=== PATIENT | male | born 1965 | race Hispanic/Latino ===

== ENCOUNTER 2017-04-25 06:28 | Emergency (ER) | payer SELFPAY ==
--- NOTE | 2017-04-25 06:44 | ED PDOC ---
Arrival/HPI - General Time Seen by Provider: 04/25/17 06:31 - History of Present Illness Narrative History of Present Illness (Text): 04/25/17 06:42 patient presents complaining of left-sided chest pain which began this morningpain radiates to left arm and left jaw region in the field by medics with nitroglycerin no abdominal pain Past Medical History - Provider Review Nursing Documentation Reviewed: Yes Family/Social History - Physician Review Nursing Documentation Reviewed: Yes Family/Social History: No Known Family HX Allergies/Home Meds Allergies/Adverse Reactions: Allergies No Known Allergies Allergy (Verified 04/25/17 06:34) Home Medications: Home Meds Medication Instructions Recorded Confirmed Unobtainable 04/25/17 04/25/17 Review of Systems - Physician Review All systems were reviewed & negative as marked: Yes - Review of Systems Constitutional: Normal Eyes: Normal ENT: Normal Respiratory: absent: SOB Cardiovascular: Chest Pain Gastrointestinal: Normal Genitourinary Male: Normal Musculoskeletal: Normal Skin: Normal Neurological: Normal Endocrine: Normal Hemo/Lymphatic: Normal Psychiatric: Normal Physical Exam Vital Signs Reviewed: Yes Vital Signs Temp Pulse Resp BP Pulse Ox 04/25/17 07:47 80 17 115/75 98 04/25/17 06:37 98.2 F 04/25/17 06:34 90 18 136/93 H 99 Temperature: Afebrile Blood Pressure: Normal Pulse: Regular Respiratory Rate: Normal Appearance: Positive for: Well-Appearing, Non-Toxic, Comfortable Pain Distress: None Mental Status: Positive for: Alert and Oriented X 3 - Systems Exam Head: Present: Atraumatic, Normocephalic Pupils: Present: PERRL Extroacular Muscles: Present: EOMI Conjunctiva: Present: Normal Mouth: Present: Moist Mucous Membranes Neck: Present: Normal Range of Motion Respiratory/Chest: Present: Clear to Auscultation, Good Air Exchange. No: Respiratory Distress, Accessory Muscle Use Cardiovascular: Present: Regular Rate and Rhythm, Normal S1, S2. No: Murmurs Abdomen: Present: Normal Bowel Sounds. No: Tenderness, Distention, Peritoneal Signs Back: Present: Normal Inspection Upper Extremity: Present: Normal Inspection. No: Cyanosis, Edema Lower Extremity: Present: Normal Inspection. No: Edema Neurological: Present: GCS=15, CN II-XII Intact, Speech Normal Skin: Present: Warm, Dry, Normal Color. No: Rashes Psychiatric: Present: Alert, Oriented x 3, Normal Insight, Normal Concentration Medical Decision Making - Lab Interpretations Lab Results: 04/25/17 06:45 04/25/17 06:45 Lab Results 04/25/17 06:46: Urine Color Yellow, Urine Appearance Clear, Urine pH 6.0, Ur Specific Counselor 1.015, Urine Protein Negative, Urine Glucose (UA) Negative, Urine Ketones Negative, Urine Blood Negative, Urine Nitrate Negative, Urine Bilirubin Negative, Urine Urobilinogen 0.2, Ur Leukocyte Esterase Negative 04/25/17 06:45: PT 10.6, INR 0.98, APTT 27.8 04/25/17 06:45: Sodium 142, Potassium 3.9, Chloride 105, Carbon Dioxide 26, Anion Gap 15, BUN 15, Creatinine 0.7, Est GFR ( Amer) > 60, Est GFR (Non- Af Amer) > 60, Random Glucose 112 H, Calcium 9.2, Magnesium 1.9, Total Bilirubin 0.5, AST 35, ALT 48, Alkaline Phosphatase 68, Lactate Dehydrogenase 328 L, Total Creatine Kinase 35, Troponin I < 0.01, Total Protein 6.7, Albumin 4.1, Globulin 2.7, Albumin/Globulin Ratio 1.5 04/25/17 06:45: WBC 9.4, RBC 4.68, Hgb 14.8, Hct 41.4 L, MCV 88.5, MCH 31.6, MCHC 35.7, RDW 13.0, Plt Count 260, MPV 9.6, Gran % 66.0, Lymph % (Auto) 23.7, [place] % (Auto) 7.3 H, Eos % (Auto) 2.5, Baso % (Auto) 0.5, Gran # 6.19, Lymph # 2.2, [place] # 0.7 H, Eos # 0.2, Baso # 0.05 - RAD Interpretation Radiology Orders: 04/25/17 06:47 CHEST PORTABLE [RAD] Stat - EKG Interpretation EKG Interpretation (Text): 04/25/17 06:43 EKG normal sinus rhythm rate 81 nonspecific changes - Transfer of Care Patient signed out to Dr:: edwige cardiac workup Disposition/Present on Arrival - Present on Arrival Any Indicators Present on Arrival: No - Disposition Have Diagnosis and Disposition been Completed?: Yes Diagnosis: Chest pain Disposition: HOME/ ROUTINE Disposition Time: 07:00 Condition: UNKNOWN Discharge Instructions (ExitCare): Chest Pain (ED) Additional Instructions: please follow up with specialist. return to er with worsening symptoms or concerns. you are choosing to not be admitted for further observation. return to er with worsening symptoms or concerns. Referrals: [facility], [Non-Staff] - Follow up with primary Walter Martinez MD [Staff Provider] - Follow up with primary Forms: [employer] ([place]atem[place])
[2017-04-25 06:45] VITALS: TEMP 98.2
[2017-04-25 07:13] LABS: ALB/GLOB RATIO 1.5 (1.1-1.8); ALKALINE PHOSPHATASE 68 U/L (38-133); ALT/SGPT 48 U/L (7-56); AST/SGOT 35 U/L (15-59); BILIRUBIN,TOTAL 0.5 mg/dL (0.2-1.3); BLOOD UREA NITROGEN 15 mg/dL (7-21); CALCIUM 9.2 mg/dL (8.4-10.5); CARBON DIOXIDE 26 mmol/L (21-33); CHLORIDE 105 mmol/L (98-107); GFR AFRICAN-AMERICAN > 60; GLUCOSE,RANDOM 112 mg/dL (70-110); MAGNESIUM 1.9 mg/dL (1.7-2.2); POTASSIUM 3.9 mmol/L (3.6-5.0); SODIUM 142 mmol/L (132-148); TOTAL PROTEIN 6.7 g/dL (5.8-8.3)
[2017-04-25 07:21] LABS: BASO # 0.05 K/mm3 (0.0-2.0); BASO % 0.5 % (0.0-3.0); EOS # 0.2 (0.0-0.7); EOS % 2.5 % (1.5-5.0); GRAN # 6.19 (1.4-6.5); HEMATOCRIT 41.4 % (42.0-52.0); LYMPH # 2.2 (1.2-3.4); LYMPH % 23.7 % (22.0-35.0); MEAN CELL VOLUME 88.5 fl (80.0-105.0); MEAN CORPUSCULAR HEMOGLOBIN 31.6 pg (25.0-35.0); MEAN CORPUSCULAR HGB CONC 35.7 g/dl (31.0-37.0); MEAN PLATELET VOLUME 9.6 fl (7.0-11.0); MONO # 0.7 (0.1-0.6); MONO % 7.3 % (1.0-6.0); WHITE BLOOD COUNT 9.4 10^3/ul (4.5-11.0)
[2017-04-25 07:26] LABS: INR 0.98 (0.93-1.08); PARTIAL THROMBOPLASTIN TIME 27.8 Seconds (23.7-30.8)
[2017-04-25 07:29] LABS: TROPONIN I < 0.01 ng/mL
--- NOTE | 2017-04-25 07:43 | ED PDOC ---
Physical Exam Vital Signs Temp Pulse Resp BP Pulse Ox 04/25/17 06:37 98.2 F 04/25/17 06:34 90 18 136/93 H 99 Medical Decision Making ED Course and Treatment: 04/25/17 07:00 Patient signed out to me by Dr. Shea. Pending Labs. 04/25/17 07:40 Labs are unremarkable. Patient does not want to stay in emergency department, refuses to stay for second set of enzymes. Patient signed out AMA. Leaving Against Medical Advice (AMA): The patient is choosing to leave against medical advice. I have personally explained to the patient that choosing to do so may result in permanent bodily harm or . I have discussed at great length that without further evaluation and monitoring there may be unforeseen circumstances and/or deterioration causing permanent bodily harm or as a result of their choice. The patient is alert, oriented, and shows the mental capacity to make clear decisions regarding the patients health care at this time. The patient continues to wish to leave against medical advice. In light of the patients decision to leave against medical advice, follow-up has been arranged and the patient is aware of the importance to following up as instructed. The patient has been advised that they should return to the emergency room immediately if they change their mind at any time, or if their condition begins to change or worsen in any way. - Lab Interpretations Lab Results: 04/25/17 06:45 04/25/17 06:45 Lab Results 04/25/17 06:45: PT 10.6, INR 0.98, APTT 27.8 04/25/17 06:45: Sodium 142, Potassium 3.9, Chloride 105, Carbon Dioxide 26, Anion Gap 15, BUN 15, Creatinine 0.7, Est GFR ( Amer) > 60, Est GFR (Non- Af Amer) > 60, Random Glucose 112 H, Calcium 9.2, Magnesium 1.9, Total Bilirubin 0.5, AST 35, ALT 48, Alkaline Phosphatase 68, Lactate Dehydrogenase 328 L, Total Creatine Kinase 35, Troponin I < 0.01, Total Protein 6.7, Albumin 4.1, Globulin 2.7, Albumin/Globulin Ratio 1.5 04/25/17 06:45: WBC 9.4, RBC 4.68, Hgb 14.8, Hct 41.4 L, MCV 88.5, MCH 31.6, MCHC 35.7, RDW 13.0, Plt Count 260, MPV 9.6, Gran % 66.0, Lymph % (Auto) 23.7, [place] % (Auto) 7.3 H, Eos % (Auto) 2.5, Baso % (Auto) 0.5, Gran # 6.19, Lymph # 2.2, [place] # 0.7 H, Eos # 0.2, Baso # 0.05 - RAD Interpretation Radiology Orders: 04/25/17 06:47 CHEST PORTABLE [RAD] Stat - Scribe Statement The provider has reviewed the documentation as recorded by the Scribe Elvi Arevalo Provider Scribe Attestation: All medical record entries made by the Scribe were at my direction and personally dictated by me. I have reviewed the chart and agree that the record accurately reflects my personal performance of the history, physical exam, medical decision making, and the department course for this patient. I have also personally directed, reviewed, and agree with the discharge instructions and disposition. Disposition/Present on Arrival - Present on Arrival Any Indicators Present on Arrival: No History of DVT/PE: No History of Uncontrolled Diabetes: No Urinary Catheter: No History of Decub. Ulcer: No History Surgical Site Infection Following: None - Disposition Have Diagnosis and Disposition been Completed?: Yes Diagnosis: Chest pain Disposition: HOME/ ROUTINE Disposition Time: 13:56 Condition: UNKNOWN Discharge Instructions (ExitCare): Chest Pain (ED) Additional Instructions: please follow up with specialist. return to er with worsening symptoms or concerns. you are choosing to not be admitted for further observation. return to er with worsening symptoms or concerns. Referrals: Joey Benavides, [Primary Care Provider] - Follow up with primary Walter Martinez MD [Staff Provider] - Follow up with primary Forms: [employer] ([place]an)
[2017-04-25 07:48] VITALS: BP 115/75; PULSE 80; RESP 17; O2SAT 98
--- NOTE | 2017-04-25 08:39 | RAD ---
HISTORY: cp COMPARISON: No prior. FINDINGS: LUNGS: No active pulmonary disease. PLEURA: No significant pleural effusion identified, no pneumothorax apparent. CARDIOVASCULAR: Normal. OSSEOUS STRUCTURES: No significant abnormalities. VISUALIZED UPPER ABDOMEN: Normal. OTHER FINDINGS: None. IMPRESSION: No active disease.
[2017-04-25 09:10] LABS: URINE BILIRUBIN NEGATIVE (NEGATIVE); URINE BLOOD NEGATIVE (NEGATIVE); URINE GLUCOSE (UA) NEGATIVE (NEGATIVE); URINE KETONE NEGATIVE (NEGATIVE); URINE LEUKOCYTE ESTERASE NEGATIVE Leu/uL (NEGATIVE); URINE PROTEIN NEGATIVE mg/dL (<30 mg/dL); URINE UROBILINOGEN 0.2 E.U./dL (<1 E.U./dL)
[2017-04-25 09:12] LABS: URINE APPEARANCE CLEAR (CLEAR); URINE COLOR YELLOW (YELLOW)
--- NOTE | 2017-04-25 09:41 | CARD ---
APPROVED REPORT EKG Measurement Heart [id number] <Conclusion> Normal sinus rhythm Left axis deviation Abnormal ECG
== END 2017-04-25 07:49 | disposition home or self-care (01) ==
LOC: ED 06:28
DX: R07.9 Chest pain, unspecified (principal)